=== PATIENT | male | born 1950 | race Caucasian/White ===

== ENCOUNTER 2025-06-09 19:52 | Outpatient (CLI) | payer MEDICARE, BC, SELFPAY | END 2025-06-09 19:53 | disposition home or self-care (01) | LOC: AMB 06-11 12:56 | PROVIDERS: Visit Provider Family Medicine | DX: R41.82 Altered mental status, unspecified (principal); R11.2 Nausea with vomiting, unspecified; R53.1 Weakness | CPT/HCPCS: A0425; A0427 ==